=== PATIENT | female | born 1955 | race Caucasian/White ===

== ENCOUNTER 2022-08-11 06:43 | Day surgery (SDC) | payer MEDICARE ==
[~2022-08-11] VITALS: Ht 182.9 cm; Wt 81.6 kg
[~2022-08-11 06:43] MED LIST: ALPRAZOLAM ER0.5 MG PO; AMOXICILLIN500 M2 PO; CITALOPRAM40 M1 PO; D350 MCG PO; DICLOFENAC75 MG PO; ECOTRIN; ESTRACE0.5 MG PO; LORTAB 1010 MG PO; LOSARTAN POTAS100 MG PO; NEXIUM40 M1 PO
[2022-08-11] MEDS ORDERED: OMEPRAZOLE20 MG PO (09:26)
[2022-08-11 12:50] VITALS: BP 160/77
== END 2022-08-11 09:48 | disposition home or self-care (01) ==
LOC: ENDO 06:43 → ORM 10:15
PROVIDERS: ATTEND Surgery
PROC: 0DB48ZX Excision of Esophagogastric Junction, Via Natural or Artificial Opening Endoscopic, Diagnostic (ICD-10-PCS; principal; 2022-08-11)
PROC: 0DB78ZX Excision of Stomach, Pylorus, Via Natural or Artificial Opening Endoscopic, Diagnostic (ICD-10-PCS; 2022-08-11)
DX: K25.9 Gastric ulcer, unspecified as acute or chronic, without hemorrhage or perforation (principal); K29.50 Unspecified chronic gastritis without bleeding; K44.9 Diaphragmatic hernia without obstruction or gangrene; I10 Essential (primary) hypertension; Z87.11 Personal history of peptic ulcer disease; Z86.010 Personal history of colon polyps

== ENCOUNTER 2024-03-01 11:24 | Emergency (ER) | payer MEDICARE ==
[~2024-03-01] VITALS: Ht 182.9 cm; Wt 86.1 kg
[2024-03-01] VITALS (10 sets, daily range): BP systolic 132–176; BP diastolic 68–93
[~2024-03-01 11:24] MED LIST changes: +OMEPRAZOLE20 MG PO
== END 2024-03-01 13:54 | disposition home or self-care (01) ==
LOC: ED 11:24
PROC: 0HQKXZZ Repair Right Lower Leg Skin, External Approach (ICD-10-PCS; principal; 2024-03-01)
DX: S80.811A Abrasion, right lower leg, initial encounter (principal); I10 Essential (primary) hypertension; F41.9 Anxiety disorder, unspecified; K21.9 Gastro-esophageal reflux disease without esophagitis; X58.XXXA Exposure to other specified factors, initial encounter

== ENCOUNTER 2024-08-10 06:50 | Day surgery (SDC) | payer MEDICARE ==
[~2024-08-10] VITALS: Ht 182.9 cm; Wt 86.2 kg
[~2024-08-10 06:50] MED LIST changes: +ACETAMINOPHEN500 MG PO; +CARAFATE1 GM PO; +CITALOPRAM20 MG PO; +DICLOFENAC SODI75 MG PO; +IRON325 M1; +NORVASC5 M1 PO; +VITAMIN D PO
[2024-08-10] MEDS ORDERED: FAMOTIDINE 10MG/ML 2ML SDV IV ONE (06:53)
[2024-08-10] MEDS ORDERED: LACTATED RINGER'S 1,000 ML IV ONE ×2 (06:54→06:57)
[2024-08-10] MEDS ORDERED: STERILE WATER FOR IRRIGATION 1,000 ML BTL IR ONE (07:03)
[2024-08-10] MEDS ORDERED: LANSOPRAZOLE30 MG PO (08:07)
[2024-08-10 08:33] VITALS: BP 146/90
[2024-08-10] MEDS ORDERED: PROPOFOL 200 MG/20 ML VIAL IV ONE (17:28)
[2024-08-10] MEDS ORDERED: LIDOCAINE HCL 2% 2ML SDV IV ONE (17:28)
[2024-08-10] MEDS ORDERED: GLYCOPYRROLATE 0.2 MG/ML IV ONE (17:28)
== END 2024-08-10 08:44 | disposition home or self-care (01) ==
LOC: ORM 06:50
PROVIDERS: ATTEND Surgery
PROC: 0DB78ZX Excision of Stomach, Pylorus, Via Natural or Artificial Opening Endoscopic, Diagnostic (ICD-10-PCS; principal; 2024-08-10)
DX: K25.9 Gastric ulcer, unspecified as acute or chronic, without hemorrhage or perforation (principal); T39.395A Adverse effect of other nonsteroidal anti-inflammatory drugs [NSAID], initial encounter; K21.00 Gastro-esophageal reflux disease with esophagitis, without bleeding; K29.70 Gastritis, unspecified, without bleeding; K31.9 Disease of stomach and duodenum, unspecified; I10 Essential (primary) hypertension; Z79.899 Other long term (current) drug therapy; Z87.11 Personal history of peptic ulcer disease
CPT/HCPCS: J1596